=== PATIENT | male | born 1955 | race Caucasian/White ===

== ENCOUNTER → 2018-02-18 | Outpatient (CLI) | payer OTHER ==
[~2018-02-18] MED LIST: GADOBUTROL 10 MMOL/10 ML VIAL ONE
== END | disposition home or self-care (01) ==
LOC: CFH 07:01
PROVIDERS: ATTEND Internal Medicine
DX: C7A.012 Malignant carcinoid tumor of the ileum (principal); R16.0 Hepatomegaly, not elsewhere classified; C78.7 Secondary malignant neoplasm of liver and intrahepatic bile duct; G70.00 Myasthenia gravis without (acute) exacerbation
CPT/HCPCS: 72197; 74183; A9585

== ENCOUNTER → 2018-07-28 | Outpatient (CLI) | payer OTHER ==
[~2018-07-28] MED LIST changes: -GADOBUTROL 10 MMOL/10 ML VIAL ONE; +GADOBUTROL 7.5 MMOL/7.5 ML VIAL ONE
== END | disposition home or self-care (01) ==
LOC: CFH 09:37
PROVIDERS: ATTEND Internal Medicine
DX: C7A.012 Malignant carcinoid tumor of the ileum (principal); K76.89 Other specified diseases of liver
CPT/HCPCS: 72197; 74183; 82565; A9585

== ENCOUNTER 2020-07-11 10:13 | Outpatient (CLI) | payer OTHER ==
[2020-07-11] MEDS ORDERED: GADOXETATE DISODIUM 2.5 MMOL/10 ML ONE (11:18)
== END 2020-07-11 23:59 | disposition home or self-care (01) ==
LOC: RAD 10:13 → EDSTATUS 10:30 → RAD 23:59
PROVIDERS: ATTEND Family Medicine
DX: Z02.9 Encounter for administrative examinations, unspecified (principal)
CPT/HCPCS: A9581

== ENCOUNTER → 2021-07-18 | Outpatient (CLI) | payer OTHER ==
[~2021-07-18] MED LIST changes: -GADOBUTROL 7.5 MMOL/7.5 ML VIAL ONE; +GADOXETATE DISODIUM 2.5 MMOL/10 ML ONE
== END | disposition home or self-care (01) ==
LOC: RAD 07:45
PROVIDERS: ATTEND Family Medicine
DX: C78.7 Secondary malignant neoplasm of liver and intrahepatic bile duct (principal); C7A.8 Other malignant neuroendocrine tumors
CPT/HCPCS: 74183; A9581